=== PATIENT | female | born 1945 | race Caucasian/White ===

== ENCOUNTER 2017-12-12 22:52 | Emergency (ER) | payer MEDICARE ==
[~2017-12-12] VITALS: Ht 160 cm; Wt 60.0 kg
[~2017-12-12 22:52] MED LIST: ALPR0.5T3 PO; BUME1TAB PO; LEVO.05 PO; ONDA4TAB7 PO; PERC10TA27 PO; POTA20IN3 PO; ULTR50TA PO; WAL-10TA2 PO
[2017-12-12 23:00] VITALS: BP 225/97; PULSE 91; RESP 20; TEMP 97.6; O2SAT 97
[2017-12-12] MEDS ORDERED: LORA-650 PO (23:20)
[2017-12-12] MEDS ORDERED: ONDA8TAB7 PO (23:20)
[2017-12-12] MEDS ORDERED: HYDR-3583 PO (23:20)
[2017-12-12] MEDS ORDERED: ALPR0.5T3 PO (23:20)
[2017-12-12] MEDS ORDERED: ALLO100T PO (23:20)
[2017-12-12] MEDS ORDERED: ASPI-516 CHEW (23:20)
[2017-12-12] MEDS ORDERED: BUME1TAB PO (23:20)
[2017-12-12] MEDS ORDERED: METO50TA PO (23:20)
[2017-12-12] MEDS ORDERED: LEVO100T5 PO (23:20)
[2017-12-12] MEDS ORDERED: MORPHINE SULFATE 8 MG/ML INJ IM ONE (23:30)
--- NOTE | 2017-12-13 00:11 | RADRPT ---
EXAM DATE/TIME: 12/12/2017 23:40 [facility] COMPARISON: CT ABDOMEN & PELVIS W/O CONTRAST, January 13, 2016, 22:41. INDICATIONS : Trauma. Fell 3 days ago. ORAL CONTRAST: No oral contrast ingested. RADIATION DOSE: 16.36 CTDIvol (mGy) ; Combined studies - Thorax/Abdomen/Pelvis MEDICAL HISTORY : Cerebrovascular disease. Cardiovascular disease Hypertension.Diabetes Renal failure SURGICAL HISTORY : Cholecystectomy. ENCOUNTER: Initial ACUITY: 3 days PAIN SCALE: 5/10 LOCATION: abdomen TECHNIQUE: Volumetric scanning of the abdomen and pelvis was performed. Using automated exposure control and ad justment of the mA and/or kV according to patient size, radiation dose was kept as low as reasonably achievable to obtain optimal diagnostic quality images. DICOM format image data is available electro nically for review and comparison. FINDINGS: LOWER LUNGS: Left pleural effusion measuring 2.3 cm. LIVER: Homogeneous density without lesion for noncontrast technique. There is no dilation of the biliary tr ee. Cholecystectomy.. SPLEEN: Normal size without lesion. PANCREAS: Within normal limits. KIDNEYS: Atrophic right kidney with 1 mm calcified stone lower pole collecting system. No evidence hydronephr osis. Normal appearance of the left kidney. ADRENAL GLANDS: Within normal limits. VASCULAR: There is no aortic aneurysm. BOWEL/MESENTERY: No dilated loops of small large bowel. A few small sigmoid diverticula without radiographic evidence of diverticulitis. ABDOMINAL WALL: Within normal limits. RETROPERITONEUM: There is no lymphadenopathy. BLADDER: No wall thickening or mass. REPRODUCTIVE: Anteverted uterus. No evidence of free fluid. INGUINAL: There is no lymphadenopathy or hernia. MUSCULOSKELETAL: There are acute fractures of the posterior left 8th through 10th ribs. Advanced degenerative changes in the lumbar spine associated with lumbar scoliosis, stable from prior. CONCLUSION: 1. Acute minimally displaced fractures of the posterior left 8th through 10th ribs with associated le ft pleural effusion. 2. The spleen is intact. 3. Stable appearance of the kidneys with atrophic right kidney. There is a nonobstructing 1 mm stone lower pole collecting system of the atrophic right kidney. Mark St MD on December 12, 2017 at 23:59 Board Certified Radiologist. This report was verified electronically.
--- NOTE | 2017-12-13 00:23 | RADRPT ---
EXAM DATE/TIME: 12/12/2017 23:40 [facility] COMPARISON: No previous studies available for comparison. INDICATIONS : Trauma. Fell 3 days ago. RADIATION DOSE: 16.36 CTDIvol (mGy) ; Combined studies - Thorax/Abdomen/Pelvis MEDICAL HISTORY : Cardiovascular disease. Cardiovascular disease Hypertension. Diabetes Renal failure SURGICAL HISTORY : Cholecystectomy. ENCOUNTER: Initial ACUITY: 3 days PAIN SCALE: 5/10 LOCATION: chest TECHNIQUE: Volumetric scanning of the chest was performed. Using automated exposure control and adjustment of t he mA and/or kV according to patient size, radiation dose was kept as low as reasonably achievable to obtain optimal diagnostic quality images. DICOM format image data is available electronically for r eview and comparison. Follow-up recommendations for detected pulmonary nodules are based at a minimum on nodule size and pa tient risk factors according to Fleischner Society Guidelines. FINDINGS: LUNGS: There is no consolidation or pneumothorax. No concerning pulmonary nodule is visualized. 2 mm calci fied granuloma lateral right midlung. PLEURAE: There is left pleural fluid measuring up to 2.3 cm located in the lower mid chest. MEDIASTINUM: The heart and great vessels demonstrate no acute abnormality. There is no mediastinal or hilar lymph adenopathy. AXILLAE: Within normal limits. No lymphadenopathy. MUSCULOSKELETAL: Mildly displaced fractures of the posterolateral 8th through 10th ribs. CONCLUSION: 1. Posterior left 8th through 10th rib fractures with associated pleural fluid. 2. No evidence of pneumothorax. Mark St MD on December 13, 2017 at 0:18 Board Certified Radiologist. This report was verified electronically.
[2017-12-13 00:34] VITALS: BP 210/84; PULSE 102; RESP 18; O2SAT 96
[2017-12-13] MEDS ORDERED: HYDR-3580 PO (00:47)
[2017-12-13] MEDS ORDERED: COLA100C5 PO (00:47)
--- NOTE | 2017-12-13 00:51 | PD ---
HPI Chief Complaint: Fall Time Seen by Provider: 23:04 Travel History International Travel<30 days: No Contact w/Intl Traveler<30days: No Traveled to known affect area: No History of Present Illness HPI 72-year-old female came to the emergency room with history of fall 3 days ago when she thinks she tripped while trying to maneuver her walker. Since then she has been hurting on her left rib cage area on the side. The pain is progressively worsening and hence her son brought her to the emergency room. Patient was hypertensive upon arrival. She does have history of hypertension but she says the pain has been significant and could be contributing to it. Patient also says that she has been for years on 7.5 mg of hydrocodone but recently her physician reduced to 5 mg which has been taking for this pain but not helping. Patient is awake and answering questions appropriately. PFSH Past Medical History Narrative Medical List of her past medical, surgical, social and family history is reviewed from the nursing note. Hx Anticoagulant Therapy: No Anxiety: Yes Depression: Yes Cancer: No Cardiovascular Problems: Yes (MURMUR) High Cholesterol: No Cerebrovascular Accident: Yes Diabetes: Yes Diminished Hearing: No Endocrine: Yes Gastrointestinal Disorders: Yes Genitourinary: No Hepatitis: No Hiatal Hernia: No Hypertension: Yes Immune Disorder: No Medical other: Yes (stroke back and neck problelms) Musculoskeletal: Yes Neurologic: Yes Psychiatric: Yes Reproductive: No Respiratory: No Renal Failure: Yes (stage III) Thyroid Disease: Yes Past Surgical History Abdominal Surgery: Yes (gallbladder removed) Cardiac Surgery: No Ear Surgery: No Endocrine Surgery: No Eye Surgery: Yes ( CAT.) Genitourinary Surgery: No Gynecologic Surgery: No Oral Surgery: No Pacemaker: No Thoracic Surgery: No Other Surgery: Yes Social History Alcohol Use: No Tobacco Use: No Substance Use: No Allergies-Medications (Allergen,Severity, Reaction): Coded Allergies: amlodipine (Unverified Allergy, Unknown, CHEST PAIN, 12/12/17) cetirizine (Unverified Allergy, Unknown, KEEPS PATIENT AWAKE, 12/12/17) ezetimibe (Unverified Allergy, Unknown, MUSCLE ACHE, 12/12/17) simvastatin (Unverified Allergy, Unknown, MUSCLE PAIN, 12/12/17) verapamil (Unverified Allergy, Unknown, CAN'T RECALL, 12/12/17) acetaminophen (Unverified Adverse Reaction, Unknown, 12/12/17) oxycodone (Unverified Adverse Reaction, Unknown, 12/12/17) Uncoded Allergies: DECONGESTANTS (Adverse Reaction, Unknown, KEEPS PATIENT AWAKE, 03/10/11) Comments List of allergies reviewed from the nursing note. Reported Meds & Prescriptions Reported Meds & Active Scripts Active Colace (Docusate Sodium) 100 Mg Capsule 100 Mg PO BID Hydrocodone-Acetaminophen 7.5 Mg-325 Mg Tab 1 Tab PO Q6H PRN Reported Hydrocodone-Acetaminophen 10-325 mg Tab 1 Tab PO Q6H PRN Ondansetron (Ondansetron HCl) 8 Mg Tab 4 Mg PO Q6HR Alprazolam 0.5 Mg Tab 0.5 Mg PO Q8H PRN Allergy Relief (Loratadine) 10 Mg Tab 10 Mg PO DAILY Aspirin 81 Mg Chew 81 Mg CHEW DAILY Metoprolol Tartrate 50 Mg Tab 50 Mg PO DAILY Levothyroxine (Levothyroxine Sodium) 100 Mcg Tab 100 Mcg PO DAILY Bumetanide 1 Mg Tab 1 Mg PO DAILY Allopurinol 100 Mg Tab 100 Mg PO DAILY Narrative Medication List of home medications reviewed from the nursing note. Review of Systems Except as stated in HPI: all other systems reviewed are Neg Musculoskeletal: Positive: Pain Physical Exam Narrative GENERAL: Awake, alert, elderly, moderate distress SKIN: Focused skin assessment warm/dry. HEAD: Atraumatic. Normocephalic. EYES: Pupils equal and round. No scleral icterus. No injection or drainage. ENT: No nasal bleeding or discharge. Mucous membranes pink and moist. NECK: Trachea midline. No JVD. CARDIOVASCULAR: Regular rate and rhythm. No murmur appreciated. RESPIRATORY: No accessory muscle use. Clear to auscultation. Breath sounds equal bilaterally. GASTROINTESTINAL: Abdomen soft, non-tender, nondistended. Hepatic and splenic margins not palpable. MUSCULOSKELETAL: No obvious deformities. No clubbing. No cyanosis. No edema. Tender over the left rib cage area laterally. No crepitus NEUROLOGICAL: Awake and alert. No obvious cranial nerve deficits. Motor grossly within normal limits. Normal speech. PSYCHIATRIC: Appropriate mood and affect; insight and judgment normal. Data Data Last Documented VS Orders Orders Morphine Inj (Morphine Inj) (12/12/17 23:30) Ct Thorax/ Chest Wo Iv Contras (12/12/17 ) Ct Abd/Pel W/O Iv Contrast (12/12/17 ) Ed Discharge Order (12/13/17 00:51) [facility] Medical Decision Making Medical Screen Exam Complete: Yes Emergency Medical Condition: Yes Medical Record Reviewed: Yes Differential Diagnosis Rib fracture, splenic laceration, no other Narrative Course 1:[address] scan of the thorax and abdomen pelvis was ordered and has been reported as 8th through 10th left-sided rib fracture with minimal displacement. There is some pleural effusion. I had given her IV morphine for pain medication. I went back and discussed with her and her son and the CAT scan result. My opinion patient could be discharged home. I'll give her a prescription for stronger dose of hydrocodone. Patient and her son is okay with that plan. Procedures EKG Prior to Arrival: No Diagnosis Primary Impression: Fall Qualified Codes: W19.XXXA - Unspecified fall, initial encounter Additional Impression: Rib fractures Qualified Codes: S22.42XA - Multiple fractures of ribs, left side, initial encounter for closed fracture Referrals: Primary Care Physician 1 week Additional Instructions: Take the medication as per the prescription direction for pain. There is additional stool laxative since the pain medication can constipate you. The medication may make you groggy. If symptoms worsen come back to the emergency room. Otherwise follow-up with her primary care. Med/Other Pt SpecificInfo: Prescription(s) given Scripts Docusate Sodium (Colace) 100 Mg Capsule 100 MG PO BID for Prevent Constipation, #20 CAP 0 Refills Prov: Bandar Wilson MD 12/13/17 Hydrocodone-Acetaminophen (Hydrocodone-Acetaminophen) 7.5 Mg-325 Mg Tab 1 TAB PO Q6H Y for PAIN, #20 TAB 0 Refills Prov: Bandar Wilson MD 12/13/17 Disposition: 01 DISCHARGE HOME Condition: Stable Bandar Wilson MD Dec 13, 2017 00:51
[2017-12-13 00:58] VITALS: BP 183/81
== END 2017-12-13 01:20 | disposition home or self-care (01) ==
LOC: NEPE 22:52
DX: S22.42XA Multiple fractures of ribs, left side, initial encounter for closed fracture (principal); J90 Pleural effusion, not elsewhere classified; I10 Essential (primary) hypertension; N26.1 Atrophy of kidney (terminal); R01.1 Cardiac murmur, unspecified; E11.9 Type 2 diabetes mellitus without complications; E07.9 Disorder of thyroid, unspecified; W01.0XXA Fall on same level from slipping, tripping and stumbling without subsequent striking against object, initial encounter; Z86.73 Personal history of transient ischemic attack (TIA), and cerebral infarction without residual deficits
CPT/HCPCS: 71250; 74176; 96372; 99283; J2270

== ENCOUNTER 2018-02-10 16:01 | Emergency (ER) | END 2018-02-10 22:35 | disposition home or self-care (01) | DX: R53.1 Weakness (principal); E07.9 Disorder of thyroid, unspecified; I12.9 Hypertensive chronic kidney disease with stage 1 through stage 4 chronic kidney disease, or unspecified chronic kidney disease; E11.22 Type 2 diabetes mellitus with diabetic chronic kidney disease; N18.3 Chronic kidney disease, stage 3 (moderate); R94.31 Abnormal electrocardiogram [ECG] [EKG] | CPT/HCPCS: 71045; 80053; 81001; 82550; 83735; 84443; 84484; 85025; 85610; 85730; 87077; 87086; 87186; 93005; 99285; J7040 ==